=== PATIENT | male | born 1950 | race Caucasian/White ===

== ENCOUNTER 2016-11-25 14:29 | Emergency (ER) | payer OTHER, MEDICARE ==
[~2016-11-25] VITALS: Ht 180.3 cm; Wt 99.8 kg
[~2016-11-25 14:29] MED LIST: CHILDREN'S ASPI81 M1 PO; LASIX20 MG PO; PRINIVIL10 M1 PO; [UNRECOGNIZED DRUG - OTHER] PO
[2016-11-25] MEDS ORDERED: LISINOPRIL-HCT1 EAC1 PO (15:43)
[2016-11-25] MEDS ORDERED: MELOXICAM15 M1 PO (15:44)
--- NOTE | 2016-11-25 15:44 | ED GENERAL ADULT ---
History of Present Illness General Chief Complaint: General Adult Stated Complaint: BALANCE ISSUES X 2 WEEKS Source: patient Exam Limitations: no limitations Allergies Coded Allergies: NO KNOWN ALLERGIES (04/28/16) Triage Note: PT TO TRIAGE WITH C/O DIZZINESS WHEN CHANGING POSITION FROM SITTING TO STANDING AND LOOSING BALANCE WITH AMBULATION [id number]. PT DENIES CHEST PAIN,ABD PAIN,SOB. VSS. Triage Nurses Notes Reviewed? yes Onset: Gradual Duration: 2 WEEKS Timing: no prior history Injury Environment: home Severity: moderate Severity Numbers: 6 No Modifying Factors: none HPI: Patient is a 66-year-old male with history of hypertension and osteoarthritis presenting to the emergency department with chief complaint of feeling off balance for the past 10 days consistently. Patient reports her symptoms are worse with positional changes and when he ambulates. He's been using a crutch that he found at home to help with his symptoms. Denies any visual changes. No weakness. He does report that he had some cramping in his right upper extremity the other day but that had resolved. Denies any confusions or headaches. No chest pain or palpitations. Denies any change in by mouth intake. Still eating and drinking without difficulty. No fevers or chills. Denies neck pain. He does have long-standing history of osteoarthritis in his back. Saw the orthopedic today who evaluated him and he was recommended to come to the emergency department for evaluation because orthopedic did not feel that this was related to his back or leg issues. Patient denying any numbness. No weakness. He feels like he is getting pulled forward when he ambulates at times. While he seated he is asymptomatic. (DULCE CONNER,AMITA) Vital Signs & Intake/Output Vital Signs & Intake/Output Vital Signs Date Time Temp Pulse Resp B/P B/P Pulse O2 O2 Flow FiO2 Mean Ox Delivery Rate 11/25 1839 98.7 64 68 129/63 95 11/25 1723 97.0 67 18 125/61 100 Room Air 11/25 1636 96 Room Air 11/25 1453 97.9 84 18 147/80 97 Room Air Reconcile Medications Aspirin (Children's Aspirin) 81 MG TAB.CHEW 1 TAB PO DAILY HEART HEALTH ( Reported) Furosemide 20 MG TABLET 1 TAB PO DAILY WATER RETENTION (Reported) Lisinopril/Hydrochlorothiazide (Lisinopril-Hctz 20-25 MG Tab) 20 MG-25 MG TABLET 1 TAB PO DAILY HEART (Reported) Meloxicam 15 MG TABLET 1 TAB PO DAILY PRN PAIN (Reported) (JACK MARTINEZ,KIRTI) Past History Travel History Traveled to [place] past 21 day No Medical History Any Pertinent Medical History? see below for history Cardiovascular: hypertension Musculoskeletal: osteoarthritis Cancer(s): SKIN CA Surgical History Surgical History: non-contributory Psychosocial History What is your primary language Yoruba Tobacco Use: Never used Family History Hx Contributory? No (AMITA DARBY) Review of Systems Review of Systems Constitutional: Reports: no symptoms. Comments Review of systems: See HPI, All other systems negative. Constitutional, no chills fever or weight loss HEENT: No visual changes no sore throat no congestion Cardiovascular: No chest pain ,palpitation , orthopnea or ankle swelling Skin, no jaundice no rashes Respiratory: No dyspnea cough sputum or hemoptysis GI: No nausea no vomiting : No dysuria No hematuria Muscle skeletal: no increased back pain, no neck pain, Neurologic: No numbness no confusion, no headaches Psych: No stress anxiety or depression,. Heme/endocrine: No bruising no bleeding no polyuria or polydipsia Immunology: No splenectomy or history of AIDS (AMITA DARBY) Physical Exam Physical Exam General Appearance: well developed/nourished, no apparent distress, alert, awake , comfortable Comments: Well-developed well-nourished person in no acute distress HEENT: Normal EENT exam, extraocular motion intact, no nystagmus. Pupils equally round and reactive to light and accommodation. Nose is atraumatic. External auditory canal and Tympanic membranes clear. Pharynx normal. No swelling or edema. Moist mucous membranes. Neck: Supple, no lymphadenopathy, normal range of motion without pain or tenderness Back: Mild tenderness to palpation in the lumbar paraspinal region, no bony tenderness. Limited range of motion with Jon's flexion, patient had difficulty past 65. Cardiovascular: Regular rate and rhythms no murmurs rubs or gallops, normal JVP Respiratory: Chest nontender. No respiratory distress.breath sounds clear to auscultation bilaterally Abdomen: Soft, nontender nondistended, no appreciable organomegaly. Normal bowel sounds. No ascites, no rebound or guarding. Extremity: No edema, no calf tenderness to palpation, normal and equal pulses. Full range of motion of upper and lower extremities without difficulty or pain. Muscular strength is 5 out of 5 in all extremities. Process Control Supervisor strength is equal and symmetric bilaterally. Neuro: Alert oriented x3, motor sensory normal, cranial nerves II through XII grossly intact. Cerebellar testing is unremarkable. Rapid alternating hand movements is performed without difficulty. Finger to nose testing is unremarkable. Patellar reflexes are 2+ bilaterally. Skin: No appreciable rash on exposed skin, skin is warm and dry. Psych: Mood and affect is normal, memory and judgment is normal. Core Measures ACS in differential dx? Yes CVA/TIA Diagnosis: No Severe Sepsis Present: No Septic Shock Present: No (AMITA DARBY) Progress Differential Diagnoses I considered the following diagnoses in my evaluation of the patient: Cerebellar infarct, dehydration, electrolyte abnormality, orthostatic hypotension, medication reaction, multifactorial gait disorder secondary to osteoarthritic changes in the spine. Initial ED EKG: SINUS RHYTHM AT 69 BPM, RIGHT BUNDLE-BRANCH BLOCK Comments: Patient was informed of all lab work results and imaging study results. Patient has steady gait with crutch. No signs of CVA on MRI. Patient reports symptoms have been constant for the past 10 days. 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 No nystagmus noted on exam. No history of recent viral upper respiratory infection. Patient will follow up with PCP. SISTER was updated with information after receiving consent from patient and to release information to her. MRI is negative. Orthostatics are negative. Blood work is unremarkable. EKG is normal sinus. Patient will follow with PCP. (AMITA DARBY) Plan of Care: Orders Procedure Date/time Status MISTAKE 11/25 1544 Active Telemetry/Military Technology Specialist 11/25 1544 Active TSH REFLEX 11/25 1544 Complete TROPONIN LEVEL 11/25 1544 Complete PARTIAL THROMBOPLASTIN TIME 11/25 1544 Complete PROTHROMBIN TIME 11/25 1544 Complete COMPREHENSIVE METABOLIC PANEL 11/25 1544 Complete CBC WITHOUT DIFFERENTIAL 11/25 1544 Complete EKG 11/25 1511 Active Laboratory Tests 11/25/16 1558: Anion Gap 12, Estimated GFR > 60, BUN/Creatinine Ratio 22.5, Glucose 84, Calcium 9.0, Total Bilirubin 0.5, AST 17, ALT 30, Alkaline Phosphatase 58, Troponin I < 0.01, Total Protein 7.2, Albumin 4.0, Globulin 3.2, Albumin/Globulin Ratio 1.3, TSH &T3 &Free T4 Intrp 1.970, PT 11.1, INR 1.06, APTT 28, CBC w Diff NO MAN DIFF REQ, RBC 4.22 L, MCV 83.5, MCH 27.8, RDW 15.4 H, MPV 8.6, Gran % 64.2, Lymphocytes % 21.3, Monocytes % 10.5 H, Eosinophils % 3.3, Basophils % 0.7, Absolute Granulocytes 5.3, Absolute Lymphocytes 1.8, Absolute Monocytes 0.9 H, Absolute Eosinophils 0.3, Absolute Basophils 0.1, PUBS MCHC 33.3 Diagnostic Imaging: Viewed by Me: MRI. Discussed w/RAD: MRI. (JACK MARTINEZ,KIRTI) Departure Departure Time of Disposition: 1837 Disposition: HOME OR SELF CARE Condition: Stable Clinical Impression Primary Impression: Dizziness Referrals: MOJGAN MARTINEZ,JEOVANY VICTOR MD,Xavi ABARCA (PCP/Family) Additional Instructions: Follow-up with your primary care physician as well as orthopedics. Return for worsening symptoms or concerns. Increase fluids. Use crutches for support. YOU may need MRI of back to further assess gait issues. YOU CAN FOLLOW UP WITH neurology as well. ATIENT: ROMAN OLSON PRESENT AGE: 66 PATIENT ACCOUNT NO: [id number] : 49 LOCATION: [facility] ORDERING PHYSICIAN: AMITA CONNER SERVICE DATE: 11/25/16 EXAM TYPE: MRI - MRI-HEAD W/O MARGARET EXAMINATION: MR BRAIN WITHOUT CONTRAST CLINICAL INFORMATION: Off-balance, pulling forward for one week. COMPARISON: None available. TECHNIQUE: MRI of the brain without contrast was obtained using routine sequences. FINDINGS: There is no hydrocephalus, extra-axial surface collection, or herniation. Mild T2 signal changes within the bifrontal white matter, likely mild chronic microangiopathy. The major flow voids at the skull base are preserved. There is no acute infarct on diffusion-weighted imaging. There is no intracranial hemorrhage on the gradient recalled echo acquisition. The midline structures are normal. The cerebellar tonsils are normally positioned. The cerebellum and brainstem are normal. The craniocervical junction is normal. Osseous marrow signal intensity is homogenous. The visualized soft tissues are unremarkable. There is a small retention cyst within the right sphenoid sinus extending into the pneumatized right anterior clinoid process. IMPRESSION: - No acute intracranial findings. No acute infarcts. - Mild chronic microangiopathy. DICTATED BY: MARQUIS PLUMMER MD DATE/TIME DICTATED:11/25/161714 MANAGER TRANSPORTATION:MAKEDA DATE/TIME TRANSCRIBED:11/25/161714 CONFIDENTIAL, DO NOT COPY WITHOUT APPROPRIATE AUTHORIZATION. <Electronically signed in Other Vendor System> SIGNED BY: MARQUIS PLUMMER MD 11/25/16 9700 Departure Forms: Customer Survey General Discharge Information (AMITA DARBY) PA/AUTOMATIC PINSETTER ADJUSTER Co-Sign Statement Statement: ED Attending supervision documentation- [X] I saw and evaluated the patient. I have also reviewed all the pertinent lab results and diagnostic results. I agree with the findings and the plan of care as documented in the PA's/AUTOMATIC PINSETTER ADJUSTER's documentation. [X] I have reviewed the ED Record and agree with the PA's/AUTOMATIC PINSETTER ADJUSTER's documentation. [] Additions or exceptions (if any) to the PAs/AUTOMATIC PINSETTER ADJUSTER's note and plan are summarized below: [] (JACK MARTINEZ,KIRTI) Critical Care Note Critical Care Note Critical Care Time: non-applicable (AMITA DARBY)
[2016-11-25] MEDS ORDERED: FUROSEMIDE20 M1 PO (15:45)
--- NOTE | 2016-11-25 16:15 | RADIOLOGY REPORT ---
EXAMINATION: XR PORTABLE CHEST CLINICAL INFORMATION: Dizzy. Evaluate for cardiomegaly. COMPARISON: None TECHNIQUE: Portable AP 80 degrees upright view of the chest was obtained. FINDINGS: The heart is within normal limits in size. There is no congestion or focal consolidation. The bony thorax is unremarkable. IMPRESSION: No acute cardiopulmonary process. Normal heart size.
[2016-11-25 16:17] LABS: ABSOLUTE BASOPHIL COUNT 0.1 /CUMM (0.0-0.2); ABSOLUTE EOSINOPHIL COUNT 0.3 /CUMM (0.0-0.7); ABSOLUTE GRANULOCYTE CT 5.3 /CUMM (1.4-6.5); ABSOLUTE LYMPH COUNT 1.8 /CUMM (1.2-3.4); ABSOLUTE MONOCYTE COUNT 0.9 /CUMM (0.10-0.60); BASOPHIL % 0.7 % (0.0-2.0); EOSINOPHIL % 3.3 % (0-5); GRANULOCYTE % 64.2 % (42.2-75.2); HEMATOCRIT 35.3 % (42-52); MEAN CORPUSCULAR HGB 27.8 PG (27.0-31.0); MEAN CORPUSCULAR HGB CONC 33.3 G/DL (33.0-37.0); MEAN CORPUSCULAR VOLUME 83.5 FL (80.0-94.0); MEAN PLATELET VOLUME 8.6 FL (7.4-10.4); PLATELET COUNT 282 /CUMM (130-400); RBC DISTRIBUTION WIDTH 15.4 % (11.5-14.5); RED BLOOD CELL CT 4.22 /CUMM (4.70-6.10); WHITE BLOOD CELL COUNT 8.3 /CUMM (4.8-10.8)
[2016-11-25 16:26] LABS: PT 11.1 SEC (9.4-12.5); PTT 28 SEC (25-37)
--- NOTE | 2016-11-25 17:34 | MRI REPORT ---
EXAMINATION: MR BRAIN WITHOUT CONTRAST CLINICAL INFORMATION: Off-balance, pulling forward for one week. COMPARISON: None available. TECHNIQUE: MRI of the brain without contrast was obtained using routine sequences. FINDINGS: There is no hydrocephalus, extra-axial surface collection, or herniation. Mild T2 signal changes within the bifrontal white matter, likely mild chronic microangiopathy. The major flow voids at the skull base are preserved. There is no acute infarct on diffusion-weighted imaging. There is no intracranial hemorrhage on the gradient recalled echo acquisition. The midline structures are normal. The cerebellar tonsils are normally positioned. The cerebellum and brainstem are normal. The craniocervical junction is normal. Osseous marrow signal intensity is homogenous. The visualized soft tissues are unremarkable. There is a small retention cyst within the right sphenoid sinus extending into the pneumatized right anterior clinoid process. IMPRESSION: - No acute intracranial findings. No acute infarcts. - Mild chronic microangiopathy.
[2016-11-25 18:39] VITALS: BP 129/63
== END 2016-11-25 19:15 ==
LOC: ERH 14:29
PROVIDERS: Physician Assistant
DX: R42 Dizziness and giddiness (principal)
CPT/HCPCS: 70551; 93005; 93010

== ENCOUNTER 2016-11-30 13:54 | Emergency (ER) | payer OTHER, MEDICARE ==
[~2016-11-30] VITALS: Ht 180.3 cm; Wt 99.8 kg
[~2016-11-30 13:54] MED LIST changes: +FUROSEMIDE20 M1 PO; +LISINOPRIL-HCT1 EAC1 PO; +MELOXICAM15 M1 PO
--- NOTE | 2016-11-30 15:28 | ED AMS/SEIZURE/WEAK/DIZZY ---
History of Present Illness General Chief Complaint: General Adult Stated Complaint: HERE LAST WK FOR SAME, "PROBLEM WITH MY BALANCE" Source: patient, old records Exam Limitations: no limitations Vital Signs & Intake/Output Vital Signs & Intake/Output Vital Signs Date Time Temp Pulse Resp B/P B/P Pulse O2 O2 Flow FiO2 Mean Ox Delivery Rate 11/30 1605 76 20 122/80 98 Room Air 11/30 1406 97.7 79 20 128/76 97 Room Air Allergies Coded Allergies: NO KNOWN ALLERGIES (04/28/16) Reconcile Medications Aspirin (Children's Aspirin) 81 MG TAB.CHEW 1 TAB PO DAILY HEART HEALTH ( Reported) Furosemide 20 MG TABLET 1 TAB PO DAILY WATER RETENTION (Reported) Lisinopril/Hydrochlorothiazide (Lisinopril-Hctz 20-25 MG Tab) 20 MG-25 MG TABLET 1 TAB PO DAILY HEART (Reported) Meloxicam 15 MG TABLET 1 TAB PO DAILY PRN PAIN (Reported) Triage Note: SEEN HERE LAST WEEK FOR BALANCE PROBLEMS. MADE APPT WITH NEUROLOGIST FOR DECEMBER 23 AND DOESN'T FEEL LIKE HE CAN WAIT THAT LONG FOR MRI Triage Nurses Notes Reviewed? yes Onset: Abrupt Duration: week(s): (2), intermittent, waxing and waning Timing: recent history Injury Environment: home Severity: mild, moderate Severity Numbers: 5 No Modifying Factors: none Associated Symptoms: DENIES HPI: 66 year old male history of htn, hld, chronic back pain presents emergency room for evaluation complaining of persistent numbness and tingling to his back associated with pain in his lower and upper back for the past several months worse over the past 2 weeks. He was seen in this ER last week for similar symptoms. Patient denies headache vision changes he's been using a crutch to ambulate and states the pain is improved with palpation. He denies weakness no recent falls dizziness lightheadedness however states that the pain is making him feel off balance. He scheduled to be seen by a neurologist on December 23. No urinary or bowel incontinence no abdominal pain chest pain shortness of breath. Symptoms are worse with changein position, better at rest (DAVID CONNER,JEOVANY) Past History Travel History Traveled to [place] past 21 day No Medical History Any Pertinent Medical History? see below for history Cardiovascular: hypertension Musculoskeletal: osteoarthritis Cancer(s): SKIN CA Surgical History Surgical History: non-contributory Psychosocial History What is your primary language [place] Tobacco Use: Never used ETOH Use: occasional use Illicit Drug Use: denies illicit drug use Family History Hx Contributory? No (JEOVANY TELLEZ) Review of Systems Review of Systems Constitutional: Reports: see HPI. All Other Systems: Reviewed and Negative Comments Review of systems: See HPI, All other systems negative. Constitutional, no chills no fever, no malaise HEENT: No visual changes no sore throat no congestion, no ear pain Cardiovascular: No chest pain , no palpitation , no orthopnea Skin: no rashes, no change in skin Respiratory: No dyspnea no cough no sputum GI: No nausea no vomiting, no diarrhea : No dysuria Muscle skeletal: No joint pain, no joint swelling, no back pain, no neck pain, Neurologic: No numbness no confusion, no headache Psych: No stress no depression,. Heme/endocrine: No bruising no bleeding Immunology: No lymphadenopathy (JEOVANY TELLEZ) Physical Exam Physical Exam General Appearance: well developed/nourished, alert, awake Comments: Well-developed well-nourished person in no acute distress HEENT: Normal EENT exam; PERRL, EOMI, no nystagmus. HEAD is atraumatic. moist mucous membranes. Neck: Supple, no bruit, normal range of motion Back: Nontender, no CVA tenderness. Full range of motion Cardiovascular: Regular rate and rhythms no murmurs rubs or gallops Respiratory: Chest nontender.There were no bony deformities, no asymmetry. No respiratory distress. Patient speaking in full complete sentences. Breath sounds clear to auscultation bilaterally: NO W/R/R Abdomen: Soft, nontender nondistended, no appreciable organomegaly. Normal bowel sounds. No rebound/guarding, No appreciable enlargement of the abdominal aorta, No ascites. Extremity: No edema, full range of motion of extremities, normal and equal pulses bilaterally, 5 out of 5 strength noted to bilateral upper and lower extremities Neuro: Alert oriented x3, motor sensory normal, cranial nerves II through XII grossly intact. There were no obvious focal neurologic abnormalities. Skin: No appreciable rash on exposed skin, skin is warm and dry. Psych: Mood and affect is normal, memory and judgment is normal. Core Measures ACS in differential dx? No CVA/TIA Diagnosis: No Severe Sepsis Present: No Septic Shock Present: No (JEOVANY TELLEZ) Progress Differential Diagnosis: arrythmia, alcohol intoxication, anemia, benign positional vertigo, CVA/stroke, dehydration, electrolyte imbalance, hypoglycemia , intracranial Hem., intracranial mass/tumor, multiple sclerosis, postural hypotension, subarachnoid Hem., vertebrobasilar insuff Plan of Care: Orders Procedure Date/time Status CT LUMB SPINE WO IV CONTRAST 11/[address] CERV SPINE WO IV CONTRAST 11/30 155 Active Patient clinically looks well. No urinary bowel dysfunction. No numbness in the genital area. Strength intact. Gross sensation intact. Patient resting comfortably and in no apparent distress. Pain is worse with range of motion. Pain is reproducible IN back with no bruising or ecchymosis noted. . Patient is to follow-up with primary care doctor. May need MRI of the lower back at some point time. No concerns for cauda equina at this point time. I considered this diagnosis but patient does not have any symptoms consistent with cauda equina. Patient has no secondary causes of back pain. No cardiac, pulmonary, or abdominal complaints. No abdominal pain on exam. Cardiac pulmonary exam within normal limits. No rashes, afebrile, denies recent weight loss, dizziness, lightheadedness I discussed with the patient at length all of their results. I had an extensive conversation regarding need for close follow up with their primary care physician this week as well as return precautions. I answered all of their questions, they feel comfortable with the plan and follow-up care. Old records reviewed from the patient's previous visit including his previous MRI of the head mri: 11/25/16 FINDINGS: There is no hydrocephalus, extra-axial surface collection, or herniation. Mild T2 signal changes within the bifrontal white matter, likely mild chronic microangiopathy. The major flow voids at the skull base are preserved. There is no acute infarct on diffusion-weighted imaging. There is no intracranial hemorrhage on the gradient recalled echo acquisition. The midline structures are normal. The cerebellar tonsils are normally positioned. The cerebellum and brainstem are normal. The craniocervical junction is normal. Osseous marrow signal intensity is homogenous. The visualized soft tissues are unremarkable. There is a small retention cyst within the right sphenoid sinus extending into the pneumatized right anterior clinoid process. IMPRESSION: - No acute intracranial findings. No acute infarcts. - Mild chronic microangiopathy. DICTATED BY: MARQUIS PLUMMER MD DATE/TIME DICTATED:11/25/161714 DIRECTOR FUNDS DEVELOPMENT:MAKEDA DATE/TIME TRANSCRIBED:11/25/161714 (DAVID CONNER,JEOVANY) Diagnostic Imaging: Viewed by Me: CT Scan. Discussed w/RAD: CT Scan. Radiology Impression: PATIENT: ROMAN OLSON PRESENT AGE: 66 PATIENT ACCOUNT NO: [id number] : 49 LOCATION: [facility] ORDERING PHYSICIAN: JEOVANY CONNER SERVICE DATE: 11/30/16 EXAM TYPE: CAT - CT CERV SPINE WO IV CONTRAST; CT LUMB SPINE WO IV CONTRAST EXAMINATION: CT CERVICAL SPINE WITHOUT CONTRAST CT LUMBAR SPINE WITHOUT CONTRAST CLINICAL INFORMATION: Numbness and tingling to hand and legs. No known trauma. Rule out herniated disc , pathology. COMPARISON: None TECHNIQUE: Multidetector volumetric imaging was obtained through the cervical spine and through the lumbar spine (separate studies) without intravenous contrast material. Multiplanar reformatted images in coronal and sagittal orientations were submitted. FINDINGS: CERVICAL SPINE: No fracture or no spondylolisthesis. Vertebral body heights are normal. No evidence of epidural hematoma. No acute paraspinal soft tissue abnormalities. There is moderate degenerative disc disease at C5-C6 which is characterized by loss of intervertebral disc height, endplate osteophytes, and uncovertebral osteophytes. More mild degenerative disc disease is present at the adjacent levels. Mild facet arthropathy is present on the right at C7-T1. Left paracentral disc protrusion at C4-C5 produces fwrh-zm-bzmldvic central canal stenosis. There is also mild central canal narrowing at C5-C6 due to posterior disc osteophyte complexes. Uncovertebral osteophytes at C5-C6 produce mild bilateral neural foraminal stenoses. Neural foramina are otherwise patent. Thyroid gland appears diminutive and heterogeneous. No focal lesions are identified. No cervical adenopathy. Imaged portion of the posterior fossa is unremarkable. Lung apices are clear. LUMBAR SPINE: No fracture or spondylolisthesis. Vertebral body heights are normal. There is mild left convex lumbar scoliosis centered at L3. Schmorl's nodes are present at the inferior endplates of L2 and L4 and at the superior endplates of L3, L4, and L5. Moderate degenerative disc disease at L3-L4 is most pronounced along the right lateral margin, characterized by loss of intervertebral disc height, endplate osteophytes, endplate irregularity, and vacuum disc phenomenon. There is more kpwc-bv-ujoqchpp degenerative disc disease at L4-L5 and mild degenerative disc disease at the other levels. Severe facet arthropathy is present at L5-S1, left side greater than right. More moderate facet arthropathy is present at L3-L4 on the right. There is mild facet arthropathy throughout the remainder of the lumbar spine. Calcific atherosclerosis is present in the abdominal aorta. No aneurysmal dilatation. Conus medullaris terminates around L1. T12-L1: Unremarkable. L1-L2: Unremarkable L2-L3: Mild annular bulge. No significant central canal or neural foraminal stenoses. L3-L4: There is generalized disc bulge. Osteophytes, disc osteophytes and facet arthropathy combine is mild-to- moderate right neural foraminal stenosis. No significant central canal narrowing. Left neural foramen is patent. L4-L5: Diffuse annular bulge is asymmetric to the left. The left foraminal disc osteophyte complex and left- sided facet arthropathy produce moderate left neural foraminal stenosis. There is more mild neural foraminal narrowing on the right. The disc bulge contributes to mild central canal stenosis. L5-S1: The left foraminal disc osteophytic bulge produces mild mass effect upon the left L5 nerve roots in the foramen. No significant central canal narrowing. Severe facet arthropathy is again noted. IMPRESSION: CERVICAL SPINE: 1. Snqb-fg-lqbjbqzm degenerative disc disease in the mid cervical spine, most notably at C5-C6. 2. Left paracentral disc protrusion at C4-C5 produces paxy-ft-leunkfyw central canal stenosis. More mild central canal narrowing in the central canal at C5-C6 due to a posterior disc osteophyte complex. LUMBAR SPINE: 1. Qikm-di-sgqkybda multilevel degenerative disc disease, most pronounced at L3-L4. 2. Multilevel facet arthropathy, severe at L5-S1 3. Moderate left neural foraminal stenosis at L4-L5 due to the foraminal disc osteophyte complex left-sided facet osteophytes. More pmeb-ez-fguqgqac neural foraminal stenosis is present on the right at L3-L4. 4. Mild central canal stenosis at L4-L5 due to a diffuse disc bulge. DICTATED BY: CYNDIE BARRERA MD DATE/TIME DICTATED:11/30/161616 DIRECTOR FUNDS DEVELOPMENT:MAKEDA DATE/TIME TRANSCRIBED:11/30/16 / 1617 CONFIDENTIAL, DO NOT COPY WITHOUT APPROPRIATE AUTHORIZATION. <Electronically signed in Other Vendor System> SIGNED BY: CYNDIE BARRERA MD 11/30/16 1705 Initial ED EKG: none (DAVID CONNER,JEOVANY) Departure Departure Time of Disposition: 1711 Disposition: HOME OR SELF CARE Condition: Stable Clinical Impression Primary Impression: Chronic back pain Secondary Impressions: Spinal stenosis Referrals: MOJGAN MARTINEZ,JEOVANY MENA MD,CHELY RICHARDSON MD,JARAD VICTOR MD,Xavi ABARCA (PCP/Family) Additional Instructions: follow up with neurosurgeon dr mena. Follow-up with your primary care physician as well as neurologist and orthopedist this week return with any concerns Departure Forms: Customer Survey General Discharge Information (JEOVANY TELLEZ) PA/[employer] Co-Sign Statement Statement: ED Attending supervision documentation- [x] I saw and evaluated the patient. I have also reviewed all the pertinent lab results and diagnostic results. I agree with the findings and the plan of care as documented in the PA's/[employer]'s documentation. [] I have reviewed the ED Record and agree with the PA's/[employer]'s documentation. [] Additions or exceptions (if any) to the PAs/[employer]'s note and plan are summarized below: [] (MARQUIS RAMON DO)
[2016-11-30 16:05] VITALS: BP 122/80
--- NOTE | 2016-11-30 17:05 | CT SCAN REPORT ---
EXAMINATION: CT CERVICAL SPINE WITHOUT CONTRAST CT LUMBAR SPINE WITHOUT CONTRAST CLINICAL INFORMATION: Numbness and tingling to hand and legs. No known trauma. Rule out herniated disc, pathology. COMPARISON: None TECHNIQUE: Multidetector volumetric imaging was obtained through the cervical spine and through the lumbar spine (separate studies) without intravenous contrast material. Multiplanar reformatted images in coronal and sagittal orientations were submitted. FINDINGS: CERVICAL SPINE: No fracture or no spondylolisthesis. Vertebral body heights are normal. No evidence of epidural hematoma. No acute paraspinal soft tissue abnormalities. There is moderate degenerative disc disease at C5-C6 which is characterized by loss of intervertebral disc height, endplate osteophytes, and uncovertebral osteophytes. More mild degenerative disc disease is present at the adjacent levels. Mild facet arthropathy is present on the right at C7-T1. Left paracentral disc protrusion at C4-C5 produces zmjr-bc-aufdzqgv central canal stenosis. There is also mild central canal narrowing at C5-C6 due to posterior disc osteophyte complexes. Uncovertebral osteophytes at C5-C6 produce mild bilateral neural foraminal stenoses. Neural foramina are otherwise patent. Thyroid gland appears diminutive and heterogeneous. No focal lesions are identified. No cervical adenopathy. Imaged portion of the posterior fossa is unremarkable. Lung apices are clear. LUMBAR SPINE: No fracture or spondylolisthesis. Vertebral body heights are normal. There is mild left convex lumbar scoliosis centered at L3. Schmorl's nodes are present at the inferior endplates of L2 and L4 and at the superior endplates of L3, L4, and L5. Moderate degenerative disc disease at L3-L4 is most pronounced along the right lateral margin, characterized by loss of intervertebral disc height, endplate osteophytes, endplate irregularity, and vacuum disc phenomenon. There is more noju-on-yybuqmpb degenerative disc disease at L4-L5 and mild degenerative disc disease at the other levels. Severe facet arthropathy is present at L5-S1, left side greater than right. More moderate facet arthropathy is present at L3-L4 on the right. There is mild facet arthropathy throughout the remainder of the lumbar spine. Calcific atherosclerosis is present in the abdominal aorta. No aneurysmal dilatation. Conus medullaris terminates around L1. T12-L1: Unremarkable. L1-L2: Unremarkable L2-L3: Mild annular bulge. No significant central canal or neural foraminal stenoses. L3-L4: There is generalized disc bulge. Osteophytes, disc osteophytes and facet arthropathy combine is orln-fr-bisyngnb right neural foraminal stenosis. No significant central canal narrowing. Left neural foramen is patent. L4-L5: Diffuse annular bulge is asymmetric to the left. The left foraminal disc osteophyte complex and left-sided facet arthropathy produce moderate left neural foraminal stenosis. There is more mild neural foraminal narrowing on the right. The disc bulge contributes to mild central canal stenosis. L5-S1: The left foraminal disc osteophytic bulge produces mild mass effect upon the left L5 nerve roots in the foramen. No significant central canal narrowing. Severe facet arthropathy is again noted. IMPRESSION: CERVICAL SPINE: 1. Gxdm-gg-itqfpczh degenerative disc disease in the mid cervical spine, most notably at C5-C6. 2. Left paracentral disc protrusion at C4-C5 produces dgvp-va-zeyfvfts central canal stenosis. More mild central canal narrowing in the central canal at C5-C6 due to a posterior disc osteophyte complex. LUMBAR SPINE: 1. Qogi-ed-exhwuyky multilevel degenerative disc disease, most pronounced at L3-L4. 2. Multilevel facet arthropathy, severe at L5-S1 3. Moderate left neural foraminal stenosis at L4-L5 due to the foraminal disc osteophyte complex left-sided facet osteophytes. More ljqq-gz-zfxaaijc neural foraminal stenosis is present on the right at L3-L4. 4. Mild central canal stenosis at L4-L5 due to a diffuse disc bulge.
== END 2016-11-30 17:31 ==
LOC: ERH 13:54
DX: M48.00 Spinal stenosis, site unspecified (principal)